=== PATIENT | male | born 1985 | race Caucasian/White ===

== ENCOUNTER → 2016-10-27 | Day surgery (SDC) | payer OTHER ==
[~2016-10-27] MED LIST: METOPROLOL TART25 MG PO; MICROZIDE12.5 M1 PO; ZOLOFT100 MG PO
--- NOTE | ~2016-10-27 | OR ---
Unit #: [id number] #: [id number] Patient: TANMAY ESCOTO [id number] [address] [id number] MR#: [id number] NAME: TANMAY ESCOTO. ROOM: Date of Procedure: 10/27/2016 Admission Date: 10/27/2016 Surgeon: Charan Nieto M.D. : 1985 Attending Physician: Charan Nieto M.D. Primary Care Physician: Hieu Finney M.D. OPERATIVE REPORT PREOPERATIVE DIAGNOSIS Rectal bleeding. POSTOPERATIVE DIAGNOSIS Rectal bleeding. PROCEDURE PERFORMED Colonoscopy to terminal ileum. ANESTHESIA Monitored anesthesia care. FINDINGS The patient was found to have a normal terminal ileum, normal colon except for mild internal and external hemorrhoids. SPECIMENS None. COMPLICATIONS None apparent. CONDITION The patient tolerated the procedure well. INDICATIONS FOR PROCEDURE The patient is a 31-year-old white male who has had intermittent bright red blood per rectum. He presents at this time for evaluation by colonoscopy. DESCRIPTION OF PROCEDURE After obtaining informed consent, the patient was brought to the endoscopy suite and after adequate monitored anesthesia care, had the colonoscope placed through the anus and slowly advanced to the level of the cecum without difficulty with the lumen always in view. We were able to pass through the ileocecal valve into the terminal ileum. The terminal ileum was normal as was the ileocecal valve and cecum. The ascending colon was normal as was the hepatic flexure, transverse colon, splenic flexure, descending colon, sigmoid colon, and rectum. No diverticula were seen. No inflammatory changes or neoplasms were seen. On retroflexing in the rectum to the anorectal junction, the patient was found to have some mild internal hemorrhoids. On pulling back through the anal canal, some Unit #: [id number] #: [id number] Patient: TANMAY ESCOTO external hemorrhoids were visualized as well. On digital examination, the patient had good sphincter tone. No masses palpable. The patient tolerated the procedure well and went from the endoscopy suite to recovery area in stable condition. RECOMMENDATIONS High-fiber diet, lots of liquids, tucks or wipes p.r.n. Follow up in our office as needed. Dictated by... Charan Nieto M.D. JPG/sherice TD: 10/27/2016 12:14 JOB #: [id number] CC: [facility] OPERATIVE REPORT Page 1 of 1 X Charan Nieto MD X PROCEDURE OPERATIVE NOTE
== END | disposition home or self-care (01) ==
LOC: COPS 05:53
DX: K64.4 Residual hemorrhoidal skin tags (principal); K64.8 Other hemorrhoids; I10 Essential (primary) hypertension; F41.9 Anxiety disorder, unspecified; Z98.52 Vasectomy status; Z90.89 Acquired absence of other organs; Z98.890 Other specified postprocedural states; Z79.899 Other long term (current) drug therapy
CPT/HCPCS: J2250